=== PATIENT | male | born 2000 | race Caucasian/White ===

== ENCOUNTER 2021-05-11 08:00 | Outpatient (CLI) | payer SELFPAY | END 2021-05-11 23:59 | LOC: LAB.N 08:00 | PROVIDERS: ATTEND Family Medicine | DX: R09.3 Abnormal sputum (principal); R05.1 Acute cough; Z20.822 Contact with and (suspected) exposure to COVID-19 ==

== ENCOUNTER 2023-12-22 13:30 | Outpatient (CLI) | payer OTHER ==
--- NOTE | 2023-12-22 21:30 | XRAY Report ---
PROCEDURE: Chest 2V INDICATIONS: ACUTE COUGH TECHNIQUE: 2 views of the chest were acquired. COMPARISON: None. FINDINGS: Surgical changes and devices: None. Lungs and pleura: No pleural effusions or pneumothorax. Lungs are clear. Mediastinum: Mediastinal contours appear normal. Heart size is normal. Bones and chest wall: No suspicious bony lesions. Overlying soft tissues appear unremarkable. IMPRESSION: No acute cardiopulmonary process. Reviewed by: Breezy Sanchez MD on 12/22/2023 9:29 PM PDT Approved by: Breezy Sanchez MD on 12/22/2023 9:29 PM PDT Station ID: [id number]
== END 2023-12-22 13:45 | disposition home or self-care (01) ==
LOC: DI.N 13:30
PROVIDERS: ATTEND Physician Assistant Medical
DX: R05.1 Acute cough (principal)